=== PATIENT | male | born 1935 | race Caucasian/White ===

== ENCOUNTER 2017-03-24 10:54 | Inpatient (IN) | payer MEDICARE ==
[2017-03-24] MEDS: Sodium Chloride 0.9% 1,000 ML IV SCH ×2 (12:00→20:18)
--- NOTE | 2017-03-24 12:09 | EDM.PDOC ---
ED HPI GENERAL MEDICAL PROBLEM - General Chief Complaint: General Stated Complaint: WEAKNESS Time Seen by Provider: 03/24/17 11:15 Source of Information: Reports: Patient, Family History Limitations: Reports: No Limitations - History of Present Illness INITIAL COMMENTS - FREE TEXT/NARRATIVE: Patient has been feeling poorly for 2 months but his cough has been worse the last 2 days and he is weak and feverish. He has a pneumonia. See admission H and P. Onset: Gradual Onset Date: 03/22/17 Duration: Day(s): (2) Location: Reports: Generalized Quality: Reports: Other (cough) Severity: Moderate Improves with: Reports: None Worsens with: Reports: None Context: Reports: Other (Around relative with pneumonia.) Associated Symptoms: Reports: Cough, Fever/Chills - Related Data Allergies Allergy/AdvReac Type Severity Reaction Status Date / Time environmental Allergy Mild Itching Uncoded 03/24/17 11:17 Home Meds: Home Meds Metoprolol Tartrate [Metoprolol Tartrate] 50 mg PO BID 12/27/13 [History] Warfarin Sodium [Jantoven] 2 mg PO DAILY 12/27/13 [History] Chlorthalidone 25 mg PO DAILY 03/24/17 [History] Lisinopril 40 mg PO DAILY 03/24/17 [History] Past Medical History Cardiovascular History: Reports: Afib, Hypertension Immunologic History: Reports: Immunosuppression Dermatologic History: Reports: Other (See Below) 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 Social & Family History - Alcohol Use Days Per Week of Alcohol Use: 0 - Recreational Drug Use Recreational Drug Use: No ED ROS GENERAL - Review of Systems Review Of Systems: See Below Constitutional: Reports: Fever HEENT: Reports: No Symptoms Respiratory: Reports: Cough Cardiovascular: Reports: No Symptoms Endocrine: Reports: No Symptoms GI/Abdominal: Reports: Decreased Appetite : Reports: Other (Renal failure) Musculoskeletal: Reports: No Symptoms Skin: Reports: No Symptoms Neurological: Reports: No Symptoms Psychiatric: Reports: No Symptoms Hematologic/Lymphatic: Reports: No Symptoms Immunologic: Reports: No Symptoms ED EXAM, GENERAL - Physical Exam Exam: See Below Exam Limited By: No Limitations General Appearance: Alert, WD/WN, No Apparent Distress Eye Exam: Bilateral Eye: EOMI, Normal Fundi, Normal Inspection Ears: Normal External Exam, Normal Canal, Hearing Grossly Normal, Normal TMs Ear Exam: Bilateral Ear: Auricle Normal, Canal Normal, TM normal Nose: Normal Inspection, Normal Mucosa, No Blood Throat/Mouth: Normal Inspection, Normal Lips, Normal Teeth, Normal Gums, Normal Oropharynx, Normal Voice, No Airway Compromise Head: Atraumatic, Normocephalic Neck: Normal Inspection, Supple, Non-Tender, Full Range of Motion Respiratory/Chest: Rales (Left lower rales.) Cardiovascular: Tachycardia (IRRR), Irregularly Irregular Peripheral Pulses: 3+: Posterior Tibial (L), Posterior Tibial (R), Dorsalis Pedis (L), Dorsalis Pedis (R) GI/Abdominal: Normal Bowel Sounds, Soft, Non-Tender, No Organomegaly, No Distention, No Abnormal Bruit, No Mass Back Exam: Normal Inspection, Full Range of Motion, NT Extremities: Normal Inspection, Normal Range of Motion, Non-Tender, Normal Capillary Refill, No Pedal Edema Neurological: Alert, Oriented, CN II-XII Intact, Normal Cognition, Normal Gait, Normal Reflexes, No Motor/Sensory Deficits Course - Vital Signs Text/Narrative:: Has pneumonia. Will be admitted to hospital. See H and P. Last Recorded V/S: Last Vital Signs Temp 37.7 C 03/24/17 11:01 Pulse 120 H 03/24/17 11:01 Resp 27 H 03/24/17 11:01 BP 160/75 H 03/24/17 11:01 Pulse Ox 92 L 03/24/17 11:01 - Orders/Labs/Meds Orders: Active Orders 24 hr Category Date Time Status EKG Documentation Completion [RC] ASDIRECTED Care 03/24/17 11:16 Active Chest 2V [CR] Stat Exams 03/24/17 11:14 Taken UA W/MICROSCOPIC [URIN] Stat Lab 03/24/17 11:14 Uncollected Sodium Chloride 0.9% [Normal Saline] 1,000 ml Med 03/24/17 11:30 Active IV ASDIRECTED Medication Orders Sodium Chloride (Normal Saline) 1,000 mls @ 125 mls/hr IV ASDIRECTED [facility] Labs: Laboratory Tests 03/24/17 03/24/17 03/24/17 Range/Units 11:20 11:20 11:20 WBC 12.8 H D (4.0-11.0) K/uL RBC 3.43 L (4.50-6.50) M/uL Hgb 10.9 L D (13.0-18.0) g/dL Hct 32.4 L D (40.0-54.0) % MCV 95 (76-96) fL MCH 31.8 (27.0-32.0) pg MCHC 33.6 (31.0-35.0) g/dL RDW 14.9 (11.0-16.0) % Plt Count 242 (150-400) K/uL MPV 10.7 H (6.0-10.0) fL Neut % (Auto) 85.4 H (45.0-70.0) % Lymph % (Auto) 3.2 L (20.0-40.0) % [place] % (Auto) 9.0 (3.0-10.0) % Eos % (Auto) 1.3 (1.0-5.0) % Baso % (Auto) 1.1 H (0.0-0.5) % Neut # (Auto) 10.94 H (2.00-7.50) K/uL Lymph # (Auto) 0.41 L (1.50-4.00) K/uL [place] # (Auto) 1.15 H (0.20-0.80) K/uL Eos # (Auto) 0.16 (0.04-0.40) K/uL Baso # (Auto) 0.14 H (0.02-0.10) K/uL PT 13.3 H D (9.0-11.5) sec INR 1.4 D (1.0-3.5) Sodium 130 L (136-145) mmol/L Potassium 4.1 (3.5-5.1) mmol/L Chloride 95 L (98-107) mmol/L Carbon Dioxide 22.7 D (21.0-32.0) mmol/L Anion Gap 16.4 H (5.0-15.0) mmol/L BUN 60 H* (8-26) mg/dL Creatinine 2.23 H (0.70-1.30) mg/dL Est Cr Clr Drug Dosing 26.67 mL/min Estimated GFR (MDRD) 28 L (>60) MLS/MIN BUN/Creatinine Ratio 26.9 H (6-25) Glucose 157 H (74-100) mg/dL Calcium 9.6 (8.5-10.1) mg/dL Total Bilirubin 1.4 H D (0.0-1.0) mg/dL AST 16 (15-37) U/L ALT 14 (12-78) U/L Alkaline Phosphatase 53 (46-116) U/L Troponin I < 0.017 (0.000-0.060) ng/mL Total Protein 6.7 (6.4-8.2) g/dL Albumin 2.6 L (3.4-5.0) g/dL Globulin 4.1 (2.2-4.2) g/dL Albumin/Globulin Ratio 0.6 L (0.8-2.0) Meds: Medications Generic Name Dose Route Start Last Admin Trade Name Freq PRN Reason Stop Dose Admin Sodium Chloride 1,000 mls @ 125 mls/hr 03/24/17 11:30 Normal Saline IV ASDIRECTED [facility] Departure - Departure Time of Disposition: 12:09 Disposition: Admitted As Inpatient 66 Condition: Fair Clinical Impression: Pneumonia - Discharge Information Referrals: PCP,None [Primary Care Provider] - - My Orders Last 24 Hours: My Active Orders 03/24/17 11:14 Chest 2V [CR] Stat UA W/MICROSCOPIC [URIN] Stat 03/24/17 11:16 EKG Documentation Completion [RC] ASDIRECTED 03/24/17 11:30 Sodium Chloride 0.9% [Normal Saline] 1,000 ml IV ASDIRECTED - Assessment/Plan Last 24 Hours: My Active Orders 03/24/17 11:14 Chest 2V [CR] Stat UA W/MICROSCOPIC [URIN] Stat 03/24/17 11:16 EKG Documentation Completion [RC] ASDIRECTED 03/24/17 11:30 Sodium Chloride 0.9% [Normal Saline] 1,000 ml IV ASDIRECTED
[2017-03-24] MEDS ORDERED: Azithromycin 500 MG in Sodium Chloride 0.9% 250 ML IV ONE (13:07)
--- NOTE | 2017-03-24 13:18 | PCM.HP ---
H&P History of Present Illness - General Date of Service: 03/24/17 Admit Problem/Dx: Admission Diagnosis/Problem Admission Diagnosis/Problem Pneumonia involving left lung Source of Information: Patient, Family History Limitations: Reports: No Limitations - History of Present Illness Initial Comments - Free Text/Narative: Patient is an 81 year old man who has been feeling weak and ill for the last 2 months. He has Chronic Kidney Disease followed by Nephrology in [place]. For the last two days he has had a worsening cough and he has had a low grade fever and is weaker. He therefore asked his neighbor friend to bring him to the hospital for evaluation and help. He has some pain in his extremities when he moves but otherwise he is doing well. Symptom Onset Date: 03/22/17 Symptom Onset Time: 08:00 Duration of Symptoms: Reports: Day(s): (2) Location: Reports: Generalized Quality: Reports: Ache Severity: Moderate Improves with: Reports: Immobilization Worsens with: Reports: Movement Associated Symptoms: Reports: Cough, Loss of Appetite - Related Data Allergies/Adverse Reactions: Allergies Allergy/AdvReac Type Severity Reaction Status Date / Time environmental Allergy Mild Itching Uncoded 03/24/17 13:14 Home Medications: Home Meds Metoprolol Tartrate [Metoprolol Tartrate] 50 mg PO BID 12/27/13 [History] Warfarin Sodium [Jantoven] 2 mg PO DAILY 12/27/13 [History] Chlorthalidone 25 mg PO DAILY 03/24/17 [History] Lisinopril 40 mg PO DAILY 03/24/17 [History] Past Medical History Cardiovascular History: Reports: Afib, Hypertension Immunologic History: Reports: Immunosuppression Dermatologic History: Reports: Other (See Below) 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 Social & Family History - Alcohol Use Days Per Week of Alcohol Use: 0 - Recreational Drug Use Recreational Drug Use: No H&P Review of Systems - Review of Systems: Review Of Systems: See Below General: Reports: Fever, Decreased Appetite HEENT: Reports: No Symptoms Pulmonary: Reports: Cough Cardiovascular: Reports: No Symptoms Gastrointestinal: Reports: Decreased Appetite Genitourinary: Reports: Other (CKD) Musculoskeletal: Reports: No Symptoms Skin: Reports: No Symptoms Psychiatric: Reports: No Symptoms Neurological: Reports: No Symptoms Hematologic/Lymphatic: Reports: No Symptoms Immunologic: Reports: No Symptoms Exam - Exam Exam: See Below - Vital Signs Vital Signs: Last Vital Signs Temp 37.7 C 03/24/17 11:01 Pulse 120 H 03/24/17 11:01 Resp 27 H 03/24/17 11:01 BP 160/75 H 03/24/17 11:01 Pulse Ox 92 L 03/24/17 11:01 Weight: 72.575 kg - Exam General: Alert, Oriented, Mild Distress HEENT: PERRLA, Hearing Intact, Mucosa Moist & [place], Nares Patent, Normal Nasal Septum, Posterior Pharynx Clear, Conjunctiva Clear, EOMI, EACs Clear, TMs Clear Neck: Supple, Trachea Midline, 2 Lungs: Rales (Bibasilar but left is more pronounced.) Cardiovascular: Irregular Rhythm, Tachycardia GI/Abdominal Exam: Normal Bowel Sounds, Soft, Non-Tender, No Organomegaly, No Distention, No Abnormal Bruit, No Mass, Pelvis Stable Back Exam: Normal Inspection, Full Range of Motion, NT Extremities: Normal Inspection, Normal Range of Motion, Non-Tender, No Pedal Edema, Normal Capillary Refill Peripheral Pulses: 3+: Posterior Tibial (L), Posterior Tibial (R), Dorsalis Pedis (L), Dorsalis Pedis (R) Skin: Warm, Dry, Intact Neurological: Cranial Nerves Intact, Reflexes Equal Bilateral Neuro Extensive - Mental Status: Alert, Oriented x3, Normal Mood/Affect, Normal Cognition Neuro Extensive - Motor, Sensory, Reflexes: CN II-XII Intact, Normal Gait, Normal Reflexes Psychiatric: Alert, Normal Affect, Normal Mood - Patient Data Result Diagrams: 03/24/17 11:20 03/24/17 11:20 EKG INTERPRETATION EKG Date: 03/24/17 Rhythm: A-Fib [place]: Normal P-Wave: Absent QRS: Normal ST-T: Normal QT: Normal Comparison: NA - No Prior EKG *Q Meaningful Use (ADM) - VTE *Q VTE Criteria *Q: - Stroke *Q Stroke Criteria *Q: - AMI *Q AMI Criteria *Q: Problem List Initiated/Reviewed/Updated: Yes Orders Last 24hrs: Active Orders 24 hr Category Date Time Status Admission Status [Patient Status] [ADT] Routine ADT 03/24/17 12:30 Active RT Aerosol Therapy [RC] ASDIRECTED Care 03/24/17 13:09 Ordered Albuterol/Ipratropium [DuoNeb 3.0-0.5 MG/3 ML] Med 03/24/17 20:00 Ordered 3 ml NEB BID Azithromycin [Zithromax] 500 mg Med 03/24/17 13:07 Ordered Sodium Chloride 0.9% [Normal Saline] 250 ml IV ONETIME Chlorthalidone Med 03/25/17 08:00 Active 25 mg PO DAILY Lisinopril [Prinivil] Med 03/25/17 08:00 Active 40 mg PO DAILY Metoprolol Tartrate [Lopressor] Med 03/24/17 20:00 Active 50 mg PO BID Warfarin [Coumadin] Med 03/25/17 08:00 Active 2 mg PO DAILY cefTRIAXone [Rocephin] 1 gm Med 03/24/17 14:00 Ordered Sodium Chloride 0.9% [Normal Saline] 50 ml IV Q12H Resuscitation Status Routine Resus Stat 03/24/17 13:09 Ordered Medication Orders Albuterol/Ipratropium (Duoneb 3.0-0.5 Mg/3 Ml) 3 ml NEB BID [facility] Chlorthalidone (Chlorthalidone) 25 mg PO DAILY [facility] Sodium Chloride (Normal Saline) 1,000 mls @ 125 mls/hr IV ASDIRECTED [facility] Ceftriaxone Sodium 1 gm/ (Sodium Chloride) 50 mls @ 100 mls/hr IV Q12H [facility] Azithromycin 500 mg/ Sodium (Chloride) 250 mls @ 250 mls/hr IV ONETIME ONE Stop: 03/24/17 14:06 Lisinopril (Prinivil) 40 mg PO DAILY [facility] Metoprolol Tartrate (Lopressor) 50 mg PO BID [facility] Warfarin Sodium (Coumadin) 2 mg PO DAILY [facility] Assessment/Plan Comment:: We will treat with IV Normal Saline at 125 ml/hour, IV Rocephin 1 gram q 12 hours for 24 hours and then 1 gram q 24 hours, IV Zithromax 2 grams today and then 1 gram q 24 hours. Duoneb 1 unit dose q 8 hours. Continue home meds. He requests to be a DNR-DNI and when he does he would like his body to be donated to a medical school for medical research. Patient will be a full admission and will be hospitalized at least over [address] Keys will assume care on Sunday, March 26, 2017.
[2017-03-24] MEDS ORDERED: cefTRIAXone 1 GM in Sodium Chloride 0.9% 50 ML IV SCH (14:00)
[2017-03-24] MEDS: Albuterol/Ipratropium 3.0-0.5 MG/3 ML Neb Soln NEB SCH ×2 (14:00→20:18)
[2017-03-24] MEDS ORDERED: diphenhydrAMINE 25 MG Cap PO PRN (16:19)
[2017-03-24] MEDS ORDERED: Metoprolol Tartrate 50 MG Tab PO SCH (20:00)
[2017-03-24 22:22] VITALS: BP 138/60
[2017-03-24] MEDS ORDERED: Acetaminophen 325 MG Tab ONE (22:56)
[2017-03-24] MEDS ORDERED: Acetaminophen 325 MG Tab PO PRN (22:59)
[2017-03-25] MEDS ORDERED: Warfarin 4 MG Tab PO SCH (08:00)
[2017-03-25] MEDS ORDERED: Chlorthalidone 25 MG Tab PO SCH (08:00)
--- NOTE | 2017-03-25 10:43 | CR ---
DATE OF SERVICE: 03/24/17 CLINICAL DATA: Atrial fib AP CHEST Comparison is made to a prior exam dated 09/22/14. The heart remains enlarged, unchanged. There are reticular opacities throughout both lungs that have progressed from the prior exam. There are also poorly defined infiltrates in both lungs with progression from the prior exam. There is pleural thickening in both hemithoraces. The exam is otherwise unchanged. [id number] [facility]
--- NOTE | 2017-03-25 14:18 | PCM.DCSUM1 ---
Discharge Summary - Hospital Course Free Text/Narrative:: Patient was an 81 year old man admitted with left lower lung pneumonia and atrial fibrillation along with Chronic Kidney Disease earlier today. He was responding well to the IV antibiotics Rocephin and Zithromax. He also requested to be a DNR-DNI on admission and let us know that he wished his body to be donated to a medical school for research. Nursing had just gone in to assess him, his vitals were fine and he was doing well. Shortly after that she returned to his room and he was with no pulse and no respiratory effort. He was not resuscitated due to his wishes. Orders were given to remove the body for eventual transport to a medical school. - Discharge Data Discharge Date: 03/24/17 Discharge Disposition: 20 Event(s) Leading to Patient's *Q: Pneumonia, Chronic Kidney Disease and Atrial Fibrillation. Condition: - Discharge Diagnosis/Problem(s) (1) Chronic kidney disease SNOMED Code(s): 306062189 ICD Code: N18.9 - CHRONIC KIDNEY DISEASE, UNSPECIFIED Status: Acute (2) Chronic kidney disease SNOMED Code(s): 094447293 ICD Code: N18.9 - CHRONIC KIDNEY DISEASE, UNSPECIFIED Status: Acute - Discharge Plan Home Medications: Home Meds Metoprolol Tartrate [Metoprolol Tartrate] 50 mg PO DAILY 12/27/13 [History] Warfarin Sodium [Jantoven] 2 mg PO DAILY 12/27/13 [History] Chlorthalidone 25 mg PO DAILY 03/24/17 [History] Lisinopril 40 mg PO DAILY 03/24/17 [History] Forms: ED Department Discharge Referrals: PCP,None [Primary Care Provider] - - Patient Data Vitals - Most Recent: Last Vital Signs Temp 36.9 C 03/24/17 20:00 Pulse 92 03/24/17 20: Resp 20 03/24/17 20:00 BP 130/60 03/24/17 20: Pulse Ox 92 L 03/24/17 20:00 Weight - Most Recent: 72.575 kg I&O - Last 24 hours: Intake & Output 03/24/17 03/25/17 03/25/17 22:59 06:59 14:59 Intake Total 1800 Output Total 350 Balance 1450 Lab Results - Last 24 hrs: Laboratory Results - last 24 hr 03/24/17 Range/Units Unknown Urine Color Yellow Urine Appearance Clear (CLEAR) Urine pH 5.0 (5.0-8.0) Ur Specific [place] 1.015 (1.003-1.030) Urine Protein 100 H (NEGATIVE) mg/dL Urine Glucose (UA) Negative (NEGATIVE) mg/dL Urine Ketones Negative (NEGATIVE) mg/dL Urine Occult Blood Trace-lysed H (NEGATIVE) Urine Nitrite Negative (NEGATIVE) Urine Bilirubin Negative (NEGATIVE) Urine Urobilinogen 0.2 (0.2-1.0) E.U./dL Ur Leukocyte Esterase Negative (NEGATIVE) Urine RBC Not seen /HPF Urine WBC Not seen /HPF Ur Squamous Epith Cells Occasional /HPF Hyaline Casts Few /HPF Med Orders - Current: Current Medications Discontinued Medications Acetaminophen (Tylenol) Confirm Administered Dose 650 mg .ROUTE .STK-MED ONE Stop: 03/24/17 22:57 Last Admin: 03/24/17 23:02 Dose: 650 mg Acetaminophen (Tylenol) 650 mg PO Q4H PRN PRN Reason: Pain/Fever Albuterol/Ipratropium (Duoneb 3.0-0.5 Mg/3 Ml) 3 ml NEB BID [facility] Last Admin: 03/24/17 20:18 Dose: 3 ml Chlorthalidone (Chlorthalidone) 25 mg PO DAILY [facility] Diphenhydramine HCl (Benadryl) 25 mg PO BEDTIME PRN PRN Reason: Sleep Last Admin: 03/24/17 23:03 Dose: 25 mg Sodium Chloride (Normal Saline) 1,000 mls @ 125 mls/hr IV ASDIRECTED [facility] Last Admin: 03/24/17 20:18 Dose: 125 mls/hr Ceftriaxone Sodium 1 gm/ (Sodium Chloride) 50 mls @ 100 mls/hr IV Q12H [facility] Last Admin: 03/24/17 14:00 Dose: 100 mls/hr Azithromycin 500 mg/ Sodium (Chloride) 250 mls @ 250 mls/hr IV ONETIME ONE Stop: 03/24/17 14:06 Last Admin: 03/24/17 14:45 Dose: 250 mls/hr Lisinopril (Prinivil) 40 mg PO DAILY [facility] Metoprolol Tartrate (Lopressor) 50 mg PO BID [facility] Last Admin: 03/24/17 20:17 Dose: 50 mg Warfarin Sodium (Coumadin) 2 mg PO DAILY [facility] *Q Meaningful Use (DIS) - VTE *Q VTE Criteria *Q: - Stroke *Q Stroke Criteria *Q: - AMI *Q AMI Criteria *Q:
== END 2017-03-24 23:30 | disposition expired | DRG 195 ==
LOC: LB.ED 10:54 → LB.MS 12:30
PROVIDERS: ADMIT Family Medicine; ATTEND Family Medicine
DX: J18.9 Pneumonia, unspecified organism (principal); I12.9 Hypertensive chronic kidney disease with stage 1 through stage 4 chronic kidney disease, or unspecified chronic kidney disease; N18.9 Chronic kidney disease, unspecified; I48.91 Unspecified atrial fibrillation; Z66 Do not resuscitate; Z79.01 Long term (current) use of anticoagulants; R53.1 Weakness; R05 Cough; R50.9 Fever, unspecified; Z91.09 Other allergy status, other than to drugs and biological substances
CPT/HCPCS: 36415; 71020; 80053; 84484; 85025; 85610; 93005; 99285; J7040; 81001; A9270-GY; J0456; J0696; J7050; J7620